=== PATIENT | female | born 1935 | race Caucasian/White ===

== ENCOUNTER 2021-09-04 18:00 | Observation (INO) ==
[2021-09-04] MEDS ORDERED: Melatonin 3 MG TABLET PO PRN (19:34)
[2021-09-04] MEDS ORDERED: Naloxone 0.4 MG/ML INJ IVP PRN (19:34)
[2021-09-04] MEDS ORDERED: Ondansetron ODT 4 MG TAB.RAPDIS SL PRN (19:34)
[2021-09-04] MEDS ORDERED: Ipratropium/Albuterol Neb 3 ML IH PRN (20:25)
[2021-09-04] MEDS ORDERED: 0.9 % Sodium Chloride 1,000 ML IVC SCH (20:30)
[2021-09-04 21:10] LABS: Magnesium 2.3 mg/dL (1.6-2.6); Phosphorous 4.5 mg/dL (2.7-4.5); Thyroid Stimulating Hormone 1.398 mcIU/mL (0.340-5.600)
[2021-09-04] MEDS ORDERED: Isovue-370 500 ML BOTTLE IVP ONE (21:26)
[2021-09-04] MEDS ORDERED: Furosemide 20 MG/2 ML VIAL IVP ONE (21:27)
[2021-09-04] MEDS ORDERED: *HR* LORazepam 0.5 MG TABLET PO ONE (22:43)
[2021-09-04] MEDS: *HR* Heparin 5,000 UNIT/ML VIAL SQ SCH (23:47)
[2021-09-05] MEDS: *HR* Heparin 5,000 UNIT/ML VIAL SQ SCH ×3 (05:26→21:20)
[2021-09-05 06:09] LABS: Basophils % 0.3 %; Eosinophils # 0.1 K/mcL (0.0-0.6); Eosinophils % 0.7 %; Hematocrit 41.7 % (35.3-44.9); Hemoglobin 13.2 g/dL (11.5-15.4); Immature Granulocytes % 1.1 % (0-4); Lymphocytes # 0.8 K/mcL (0.6-4.6); Mean Corpuscular HGB Conc 31.7 g/dL (31.6-35.5); Mean Corpuscular Hemoglobin 30.3 pg (28.0-33.3); Mean Corpuscular Volume 95.9 fL (83.0-100.0); Mean Platelet Volume 9.2 fL (9.4-12.4); Monocytes # 1.3 K/mcL (0.0-1.3); Monocytes % 12.1 %; Platelet Count 273 K/mcL (140-400); Red Blood Count 4.35 M/mcL (3.82-4.97); Red Cell Distribution Width 13.2 % (11.5-14.5); Segmented Neutrophils % 77.8 %; White Blood Count 10.3 K/mcL (4.3-11.1)
[2021-09-05 08:04] LABS: BUN/Creatinine Ratio 26 (6-26); Blood Urea Nitrogen 20 mg/dL (8-23); Calcium 9.6 mg/dL (8.6-10.3); Carbon Dioxide 32 mEq/L (23-29); Chloride 97 mEq/L (98-107); Glucose 81 mg/dL (70-105); Osmolality,Calculated 288 (280-300); Potassium 4.1 mEq/L (3.5-5.1); Sodium 138 mEq/L (136-145); eGFR For African Americans > 60 (> 60); eGFR For Non-African Americans > 60 (> 60)
[2021-09-05] MEDS ORDERED: Ipratropium Neb 0.5 MG NEBULIZER IH PRN (08:44)
[2021-09-05] MEDS: Acetaminophen 325 MG TABLET PO PRN (09:00)
[2021-09-05] MEDS ORDERED: cefTRIAXone 1,000 MG in 0.9 % Sodium Chloride 10 ML IVP SCH (09:00)
[2021-09-05] MEDS: levoFLOXacin 750 MG/150 ML 750 MG/150 ML BAG IVPB SCH (09:01)
[2021-09-05 11:01] LABS: Adenovirus Not Detected (Not Detect); Bordetella Pertussis Not Detected (Not Detect); Chlamydophila pneumoniae Not Detected (Not Detect); Coronavirus 229E DETECTED (Not Detect); Coronavirus HKU1 Not Detected (Not Detect); Coronavirus NL63 Not Detected (Not Detect); Coronavirus OC43 Not Detected (Not Detect); Human Metapneumovirus Not Detected (Not Detect); Human Rhinovirus/Enterovirus Not Detected (Not Detect); Influenza A Subtype 2009 H1 Not Detected (Not Detect); Influenza B Not Detected (Not Detect); Mycoplasma pneumoniae Not Detected (Not Detect); Parainfluenza Virus 1 Not Detected (Not Detect); Parainfluenza Virus 2 Not Detected (Not Detect); Parainfluenza Virus 3 Not Detected (Not Detect); Parainfluenza Virus 4 Not Detected (Not Detect); Respiratory Syncytial Virus Not Detected (Not Detect); SARS-CoV-2 Not Detected (Not Detect)
[2021-09-05] MEDS: Ipratropium/Albuterol Neb 3 ML IH SCH ×4 (11:19→23:58)
[2021-09-05] MEDS: predniSONE 5 MG TABLET PO SCH (11:46)
[2021-09-05] MEDS: Primidone 50 MG TABLET PO SCH ×2 (11:58→21:21)
[2021-09-05 16:27] LABS: INR 1.5
[2021-09-05 18:14] LABS: Lactate Dehydrogenase 228 Units/L (140-271)
[2021-09-05 19:24] LABS: RBC,Pleural Fluid 55000 RBC/mcL
[2021-09-05 19:52] LABS: Total Protein,Pleural Fluid 3.8 g/dL
[2021-09-05 20:15] LABS: Appearance of Pleural Fl Bloody (Clear)
[2021-09-05 20:16] LABS: Basophils,Pleural Fluid 0 %
[2021-09-05] MEDS: rOPINIRole 0.25 MG TABLET PO SCH (21:20)
[2021-09-06 04:02] LABS: Basophils % 0.4 %; Eosinophils % 0.2 %; Hematocrit 37.3 % (35.3-44.9); Immature Granulocytes % 0.7 % (0-4); Lymphocytes # 0.9 K/mcL (0.6-4.6); Lymphocytes % 8.1 %; Mean Corpuscular HGB Conc 32.2 g/dL (31.6-35.5); Mean Corpuscular Hemoglobin 30.3 pg (28.0-33.3); Mean Corpuscular Volume 94.2 fL (83.0-100.0); Mean Platelet Volume 9.4 fL (9.4-12.4); Monocytes # 1.2 K/mcL (0.0-1.3); Monocytes % 11.1 %; Neutrophils # 8.6 K/mcL (1.6-8.9); Platelet Count 264 K/mcL (140-400); Red Blood Count 3.96 M/mcL (3.82-4.97); Red Cell Distribution Width 13.1 % (11.5-14.5); Segmented Neutrophils % 79.5 %; White Blood Count 10.8 K/mcL (4.3-11.1)
[2021-09-06 04:08] LABS: INR 1.5
[2021-09-06 04:26] LABS: BUN/Creatinine Ratio 32 (6-26); Blood Urea Nitrogen 21 mg/dL (8-23); Calcium 9.1 mg/dL (8.6-10.3); Carbon Dioxide 31 mEq/L (23-29); Chloride 97 mEq/L (98-107); Glucose 88 mg/dL (70-105); Osmolality,Calculated 284 (280-300); Potassium 4.3 mEq/L (3.5-5.1); Sodium 136 mEq/L (136-145); eGFR For African Americans > 60 (> 60); eGFR For Non-African Americans > 60 (> 60)
[2021-09-06] MEDS: Ipratropium/Albuterol Neb 3 ML IH SCH ×6 (04:27→23:32)
[2021-09-06] MEDS: *HR* Heparin 5,000 UNIT/ML VIAL SQ SCH ×3 (05:26→20:26)
[2021-09-06] MEDS: predniSONE 5 MG TABLET PO SCH (09:01)
[2021-09-06] MEDS: Primidone 50 MG TABLET PO SCH ×2 (09:01→20:26)
[2021-09-06] MEDS: levoFLOXacin 750 MG/150 ML 750 MG/150 ML BAG IVPB SCH (09:01)
[2021-09-06] MEDS ORDERED: Gadolinium Contrast Agent (WT Based) IV PRN (10:51)
[2021-09-06] MEDS ORDERED: Isovue-370 500 ML BOTTLE IVP ONE (10:51)
[2021-09-06] MEDS ORDERED: Ondansetron 4 MG/2 ML VIAL ONE (10:58)
[2021-09-06] MEDS ORDERED: *HR* Propofol 200 MG/20 ML VIAL IVP ONE (10:58)
[2021-09-06] MEDS ORDERED: *HR* Succinylcholine 200 MG/10 ML VIAL IVP ONE (10:58)
[2021-09-06] MEDS ORDERED: Lidocaine -MPF 2% 2 ML VIAL ONE (10:58)
[2021-09-06] MEDS ORDERED: *HR* FentaNYL (PF) 100 MCG/2 ML VIAL ONE (10:58)
[2021-09-06] MEDS ORDERED: Lidocaine HCL 4 ML Topical Solution (Laryng-O-Jet Kit Sterile Pak) TP ONE (10:58)
[2021-09-06] MEDS ORDERED: *HR* Etomidate 40 MG/20 ML VIAL IVP ONE (11:09)
[2021-09-06] MEDS ORDERED: EPHEDrine 50 MG/ML VIAL ONE (11:30)
[2021-09-06 15:42] LABS: Source of Body Fluid LLL BAL
[2021-09-06] MEDS ORDERED: Isovue-370 500 ML BOTTLE PO ONE (16:39)
[2021-09-06 19:02] LABS: Appearance of Body Fluid Hazy (Clear); Volume of Body Fluid 12 mL
[2021-09-06] MEDS: rOPINIRole 0.25 MG TABLET PO SCH (20:26)
[2021-09-06] MEDS: Acetaminophen 325 MG TABLET PO PRN (20:36)
[2021-09-07] MEDS: Ipratropium/Albuterol Neb 3 ML IH SCH ×3 (04:07→11:24)
[2021-09-07 05:12] LABS: Basophils % 0.1 %; Hematocrit 37.8 % (35.3-44.9); Hemoglobin 12.1 g/dL (11.5-15.4); Immature Granulocytes % 0.7 % (0-4); Lymphocytes # 0.4 K/mcL (0.6-4.6); Lymphocytes % 3.5 %; Mean Corpuscular Hemoglobin 30.3 pg (28.0-33.3); Mean Corpuscular Volume 94.7 fL (83.0-100.0); Mean Platelet Volume 9.2 fL (9.4-12.4); Monocytes # 1.1 K/mcL (0.0-1.3); Monocytes % 9.4 %; Platelet Count 272 K/mcL (140-400); Red Blood Count 3.99 M/mcL (3.82-4.97); Segmented Neutrophils % 86.3 %; White Blood Count 11.6 K/mcL (4.3-11.1)
[2021-09-07 05:34] LABS: BUN/Creatinine Ratio 26 (6-26); Blood Urea Nitrogen 17 mg/dL (8-23); Calcium 8.9 mg/dL (8.6-10.3); Carbon Dioxide 30 mEq/L (23-29); Chloride 97 mEq/L (98-107); Glucose 123 mg/dL (70-105); Osmolality,Calculated 279 (280-300); Potassium 4.5 mEq/L (3.5-5.1); Sodium 133 mEq/L (136-145); eGFR For African Americans > 60 (> 60); eGFR For Non-African Americans > 60 (> 60)
[2021-09-07] MEDS: *HR* Heparin 5,000 UNIT/ML VIAL SQ SCH (05:48)
[2021-09-07 06:31] VITALS: TEMP 98.4
[2021-09-07] MEDS: levoFLOXacin 750 MG/150 ML 750 MG/150 ML BAG IVPB SCH (08:54)
[2021-09-07] MEDS: predniSONE 5 MG TABLET PO SCH (08:54)
[2021-09-07] MEDS: Primidone 50 MG TABLET PO SCH (08:54)
[2021-09-07 10:07] VITALS: BP 100/65; PULSE 108
[2021-09-07 11:26] VITALS: O2SAT 94
== END 2021-09-07 15:07 | disposition home or self-care (01) ==
LOC: 3NENU → SUATTDRO 19:01
PROVIDERS: ADMIT Internal Medicine; ATTEND Internal Medicine